=== PATIENT | male | born 2000 | race Caucasian/White ===

== ENCOUNTER 2022-08-14 23:11 | Emergency (ER) | payer BC ==
[2022-08-15 00:14] LABS: SARS-CoV-2 NAA Rapid Test Not Detected (NotDetected)
== END 2022-08-15 00:28 | disposition home or self-care (01) ==
LOC: ERS 23:11
DX: B34.9 Viral infection, unspecified (principal); F17.210 Nicotine dependence, cigarettes, uncomplicated; Z20.822 Contact with and (suspected) exposure to COVID-19
CPT/HCPCS: 99283

== ENCOUNTER 2022-12-01 22:21 | Emergency (ER) | payer BC ==
[2022-12-01] MEDS ORDERED: Prochlorperazine Maleate 5 MG TAB ONE (23:17)
[2022-12-01] MEDS ORDERED: Ketorolac Tromethamine 30 MG/ML VIAL ONE (23:22)
== END 2022-12-02 00:35 | disposition home or self-care (01) ==
LOC: ERS 22:21
DX: R51.9 Headache, unspecified (principal); J45.909 Unspecified asthma, uncomplicated; F17.210 Nicotine dependence, cigarettes, uncomplicated
CPT/HCPCS: 96372; 99283; J1885; Q0164

== ENCOUNTER 2023-05-31 22:05 | Emergency (ER) | payer BC ==
[2023-05-31 23:52] LABS: SARS-CoV-2 NAA Rapid Test Not Detected (NotDetected)
== END 2023-06-01 00:44 | disposition home or self-care (01) ==
LOC: ERS 22:05
DX: J06.9 Acute upper respiratory infection, unspecified (principal)
CPT/HCPCS: 99283